=== PATIENT | female | born 1950 | race Caucasian/White ===

== ENCOUNTER 2021-10-01 07:54 | Outpatient (CLI) | payer MEDICARE, BC | END 2021-10-01 07:55 | disposition home or self-care (01) | LOC: CSHMAMMO 07:54 | PROVIDERS: ATTEND Internal Medicine | DX: Z12.31 Encounter for screening mammogram for malignant neoplasm of breast (principal) | CPT/HCPCS: 77063; 77067 ==

== ENCOUNTER 2022-10-04 08:36 | Outpatient (CLI) | payer MEDICARE, BC | END 2022-10-04 08:37 | disposition home or self-care (01) | LOC: CSHMAMMO 08:36 | PROVIDERS: ATTEND Internal Medicine | DX: Z12.31 Encounter for screening mammogram for malignant neoplasm of breast (principal); Z13.820 Encounter for screening for osteoporosis; Z78.0 Asymptomatic menopausal state | CPT/HCPCS: 77063; 77067; 77080 ==

== ENCOUNTER 2023-10-31 07:49 | Outpatient (CLI) | payer MEDICARE | END 2023-10-31 07:50 | disposition home or self-care (01) | LOC: CSHMAMMO 07:49 | PROVIDERS: ATTEND Internal Medicine | DX: Z12.31 Encounter for screening mammogram for malignant neoplasm of breast (principal) | CPT/HCPCS: 77063; 77067 ==

== ENCOUNTER 2024-11-01 07:44 | Outpatient (CLI) | payer MEDICARE | END 2024-11-01 07:45 | disposition home or self-care (01) | LOC: CSHMAMMO 07:44 | PROVIDERS: ATTEND Internal Medicine | DX: Z12.31 Encounter for screening mammogram for malignant neoplasm of breast (principal) | CPT/HCPCS: 77063; 77067 ==